=== PATIENT | female | born 1995 | race Two or more races ===

== ENCOUNTER 2018-03-10 14:02 | Emergency (ER) | payer MEDICAID ==
[~2018-03-10] VITALS: Ht 157.5 cm; Wt 52.2 kg
[~2018-03-10 14:02] MED LIST: BACTRIM DS TAB1 EAC1 ORAL; CEPHALEXIN500 MG PO; CIPROFLOXACIN500 M2 ORAL; IBUPROFEN600 MG ORAL; KEFLEX500 MG ORAL; MACROBID100 MG ORAL; NKM; PHENAZOPYRIDIN200 MG ORAL
[2018-03-10 14:28] VITALS: BP 107/70
--- NOTE | 2018-03-10 14:36 | Emergency Room Report ---
History of Present Illness General Chief Complaint: Skin Rash/Abscess Source: Patient Present Illness HPI This patient presents after attempting IVDA meth two days ago and she says she missed the right antecubital vein and presents with red/swollen/painful right forearm and half of arm. No other complaints. No fever. No other issues. This is her first attempted use of IV meth. No cp, sob, n/v, change in bowels, no travel hx. No PMH Allergies: Coded Allergies: MORPHINE (Verified Allergy, Severe, Anaphylaxis, 09/06/12) Patient History Last Menstrual Period: 02/14/18 Nursing Documentation-PMH Past Medical History: No History, Except For Review of Systems Constitutional: Denies: fever Eye: Denies: acuity changes Respiratory: Denies: cough, shortness of breath Cardiovascular: Denies: chest pain Gastrointestinal: Denies: nausea, vomiting Musculoskeletal: Reports: see HPI - right arm pain/red/swollen Skin: Denies: rash Neurological: Denies: headache Physical Exam Vital Signs Date Time Temp Pulse Resp B/P (MAP) Pulse Ox O2 Delivery O2 Flow Rate FiO2 03/10/18 14:17 98.1 87 18 107/70 99 Room Air 98.1 General Appearance: well appearing, no apparent distress Head: normocephalic, atraumatic ENT: hearing grossly normal, normal voice Neck: full range of motion, supple Respiratory: no respiratory distress, speaking full sentences Musculoskeletal: no calf tenderness, other - right arm: forearm and distal half arm cellulitis; NVI Neurologic: alert, normal gait Psychiatric: mood/affect normal Skin: no rash Medical Decision Making Diagnostic Impression: Primary Impression: Cellulitis of right upper arm ER Course healthy 22F with no PMH, no meds, with cellulitis related to attempted IVDA. received IV Ancef in ED, no labs needed, will d/c with keflex. strongly counseled re IVDA and meth Last Vital Signs Date Time Temp Pulse Resp B/P (MAP) Pulse Ox O2 Delivery O2 Flow Rate FiO2 03/10/18 14:28 98.1 84 18 107/70 99 Room Air 98.1 Status: improved Disposition: HOME, SELF-CARE Condition: Improved Scripts Cephalexin* (KEFLEX*) 500 Mg Capsule 500 MG ORAL EVERY 6 HOURS for 7 Days, #28 CAP Prov: Stew Doll M.D. 03/10/18 Patient Instructions: Cellulitis, [id number] Stew Doll M.D. Mar 10, 2018 14:36
[2018-03-10] MEDS ORDERED: ceFAZolin 2gm/50ml Premix 50 ML ONE (14:37)
[2018-03-10] MEDS ORDERED: CEPHALEXIN500 MG ORAL (14:39)
[2018-03-10] MEDS ORDERED: ceFAZolin 1gm/50ml Premix 50 ML IV ONE (14:45)
[2018-03-10 15:30] VITALS: BP 107/70
== END 2018-03-10 15:30 | disposition home or self-care (01) ==
LOC: EMR 14:48
DX: L03.113 Cellulitis of right upper limb (principal); Z88.5 Allergy status to narcotic agent
CPT/HCPCS: 99283; J0690

== ENCOUNTER 2018-03-21 14:02 | Emergency (ER) | payer MEDICAID ==
[~2018-03-21] VITALS: Ht 165.1 cm; Wt 59.0 kg
[~2018-03-21 14:02] MED LIST changes: +CEPHALEXIN500 MG ORAL
[2018-03-21] MEDS ORDERED: LORazepam Inj 2mg/ml 1ml IV ONE (14:30)
--- NOTE | 2018-03-21 14:37 | Emergency Room Report ---
History of Present Illness General Chief Complaint: Altered Mental Status Source: Patient Present Illness HPI Patient is a 22-year-old female presented after increased altered mental status. Patient reports having used crystal meth as well as have some computer high pressure cleaner prior to arrival approximately 30 minutes prior to ER visit. Patient presents having palpitations. She denies any fever. Patient reports increased generalized weakness. She denies any chest pain. Allergies: Coded Allergies: MORPHINE (Verified Allergy, Severe, Anaphylaxis, 09/06/12) Patient History Past Medical History: see triage record Last Menstrual Period: 02/24/18 Now: No Reviewed Nursing Documentation: PMH: Agreed; PSxH: Agreed Review of Systems All Other Systems: negative except mentioned in HPI Physical Exam Vital Signs Date Time Temp Pulse Resp B/P (MAP) Pulse Ox O2 Delivery O2 Flow Rate FiO2 03/21/18 14:04 99.4 111 18 129/72 100 Room Air 99.3 Sp02 EP Interpretation: reviewed, normal General Appearance: normal inspection, well appearing, no apparent distress, alert, GCS 15 Head: atraumatic ENT: normal ENT inspection, hearing grossly normal, normal voice Neck: normal inspection, full range of motion, supple, no bony tend Respiratory: normal inspection, lungs clear, normal breath sounds, no respiratory distress, no retraction, no wheezing Cardiovascular #1: no edema, tachycardia Gastrointestinal: normal inspection, normal bowel sounds, non tender, soft, no guarding, no hernia Genitourinary: no CVA tenderness Musculoskeletal: normal inspection, back normal, normal range of motion Neurologic: normal inspection, alert, oriented x3, responsive, jinriksha driver III-XII nml as tested, speech normal Psychiatric: normal inspection, judgement/insight normal, mood/affect normal Skin: normal inspection, normal color, no rash Medical Decision Making Diagnostic Impression: Primary Impression: Polysubstance abuse Additional Impressions: Hypokalemia UTI (urinary tract infection) ER Course Patient presented for generalized weakness. Differential diagnosis included was not limited to anemia, urinary tract infection, electrolyte abnormality, hypothyroidism, myocardial infarction, myasthenia gravis, dehydration, among others. Because of complexity of patient's case laboratory testing and imaging studies were ordered. The patient was given IV fluids as well as IV Ativan. Patient was noted to have initial tachycardia. EKG interpreted by me showed sinus tachycardia with rate of [address] or T wave changes. Patient noted have incomplete right bundle-branch block as well as prominent R-wave in aVR.The patient's urine drug screen showed evidence of methamphetamine as well as marijuana. The patient was observed in the emergency department.Patient was advised the drug cessation. She is noted to have improvement in her symptoms after medications. Patient is advised follow-up with outpatient substance abuse treatment. Patient is given prescription for Keflex for urinary tract infection. Labs Test 03/21/18 14:20 White Blood Count 9.8 K/UL (4.8-10.8) Red Blood Count 5.05 M/UL (4.20-5.40) Hemoglobin 14.5 G/DL (12.0-16.0) Hematocrit 43.5 % (37.0-47.0) Mean Corpuscular Volume 86 FL (80-99) Mean Corpuscular Hemoglobin 28.6 PG (27.0-31.0) Mean Corpuscular Hemoglobin Concent 33.2 G/DL (32.0-36.0) Red Cell Distribution Width 11.6 % (11.6-14.8) Platelet Count 322 K/UL (150-450) Mean Platelet Volume 6.2 FL (6.5-10.1) Neutrophils (%) (Auto) 54.4 % (45.0-75.0) Lymphocytes (%) (Auto) 36.1 % (20.0-45.0) Monocytes (%) (Auto) 8.3 % (1.0-10.0) Eosinophils (%) (Auto) 0.4 % (0.0-3.0) Basophils (%) (Auto) 0.9 % (0.0-2.0) Urine Color Yellow Urine Appearance Cloudy Urine pH 6 (4.5-8.0) Urine Specific [place] 1.025 (1.005-1.035) Urine Protein 1+ (NEGATIVE) Urine Glucose (UA) Negative (NEGATIVE) Urine Ketones 2+ (NEGATIVE) Urine Occult Blood 2+ (NEGATIVE) Urine Nitrite Negative (NEGATIVE) Urine Bilirubin Negative (NEGATIVE) Urine Urobilinogen 1 MG/DL (0.0-1.0) Urine Leukocyte Esterase 2+ (NEGATIVE) Urine RBC 2-4 /HPF (0 - 2) Urine WBC 10-15 /HPF (0 - 2) Urine Squamous Epithelial Cells Few /LPF (NONE/OCC) Urine Bacteria Many /HPF (NONE) Urine HCG, Qualitative Negative (NEGATIVE) Sodium Level 137 MMOL/L (136-145) Potassium Level 3.2 MMOL/L (3.5-5.1) Chloride Level 101 MMOL/L (98-107) Carbon Dioxide Level 24 MMOL/L (21-32) Anion Gap 12 mmol/L (5-15) Blood Urea Nitrogen 10 mg/dL (7-18) Creatinine 0.7 MG/DL (0.55-1.30) Estimat Glomerular Filtration Rate > 60 mL/min (>60) Glucose Level 97 MG/DL (74-106) Calcium Level 9.2 MG/DL (8.5-10.1) Total Bilirubin 0.8 MG/DL (0.2-1.0) Aspartate Amino Transf (AST/SGOT) 19 U/L (15-37) Alanine Aminotransferase (ALT/SGPT) 17 U/L (12-78) Alkaline Phosphatase 107 U/L (46-116) Total Protein 7.9 G/DL (6.4-8.2) Albumin 4.0 G/DL (3.4-5.0) Globulin 3.9 g/dL Albumin/Globulin Ratio 1.0 (1.0-2.7) Salicylates Level < 0.2 ug/mL (2.8-20) Urine Opiates Screen Negative (NEGATIVE) Acetaminophen Level < 2 MCG/ML (10-30) Urine Barbiturates Screen Negative (NEGATIVE) Phencyclidine (PCP) Screen Negative (NEGATIVE) Urine Amphetamines Screen Positive (NEGATIVE) Urine Benzodiazepines Screen Negative (NEGATIVE) Urine Cocaine Screen Negative (NEGATIVE) Urine Marijuana (THC) Screen Positive (NEGATIVE) Serum Alcohol < 3 mg/dL EKG Diagnostic Results Rate: tachycardiac Rhythm: NSR ST Segments: no acute changes Last Vital Signs Date Time Temp Pulse Resp B/P (MAP) Pulse Ox O2 Delivery O2 Flow Rate FiO2 03/21/18 14:04 99.4 111 18 129/72 100 Room Air 99.3 Status: improved Disposition: HOME, SELF-CARE Condition: Stable Scripts Cephalexin* (KEFLEX*) 500 Mg Capsule 500 MG ORAL EVERY 6 HOURS, #40 CAP Prov: Tk Barrios MD 03/21/18 Tk Barrios MD Mar 21, 2018 14:37
[2018-03-21 14:43] LABS: APPEARANCE,URINE CLOUDY; BASOPHILS % (AUTO) 0.9 % (0.0-2.0); BILIRUBIN, URINE NEGATIVE (NEGATIVE); EOSINOPHILS % (AUTO) 0.4 % (0.0-3.0); GLUCOSE, URINE (UA) NEGATIVE (NEGATIVE); HEMATOCRIT 43.5 % (37.0-47.0); HEMOGLOBIN 14.5 G/DL (12.0-16.0); KETONES,URINE 2+ (NEGATIVE); LEUKOCYTE ESTERASE ,URINE 2+ (NEGATIVE); LYMPHOCYTES % (AUTO) 36.1 % (20.0-45.0); MEAN CORPUSCULAR VOLUME 86 FL (80-99); MONOCYTES % (AUTO) 8.3 % (1.0-10.0); NEUTROPHILS % (AUTO) 54.4 % (45.0-75.0); NITRITE,URINE NEGATIVE (NEGATIVE); PH,URINE 6 (4.5-8.0); PLATELET COUNT 322 K/UL (150-450); PROTEIN,URINE 1+ (NEGATIVE); RED BLOOD COUNT 5.05 M/UL (4.20-5.40); RED CELL DISTRIBUTION WIDTH 11.6 % (11.6-14.8); UROBILINOGEN,URINE 1 MG/DL (0.0-1.0); WHITE BLOOD COUNT 9.8 K/UL (4.8-10.8)
[2018-03-21 14:49] LABS: COLOR,URINE YELLOW
[2018-03-21 14:58] LABS: ANION GAP 12 mmol/L (5-15); BLOOD UREA NITROGEN 10 mg/dL (7-18); CALCIUM 9.2 MG/DL (8.5-10.1); CARBON DIOXIDE 24 MMOL/L (21-32); CHLORIDE 101 MMOL/L (98-107); CREATININE 0.7 MG/DL (0.55-1.30); POTASSIUM 3.2 MMOL/L (3.5-5.1); SODIUM 137 MMOL/L (136-145)
[2018-03-21 15:03] LABS: ALANINE AMINOTRANSFERASE 17 U/L (12-78); ALKALINE PHOSPHATASE 107 U/L (46-116); ASPARTATE AMINO TRANSFERASE 19 U/L (15-37); BILIRUBIN,TOTAL 0.8 MG/DL (0.2-1.0)
[2018-03-21] MEDS ORDERED: cefTRIAXone 1 GM in NS 55 ML IVPB ONE (15:30)
[2018-03-21 16:00] VITALS: BP 115/95
[2018-03-21] MEDS ORDERED: CEPHALEXIN500 MG ORAL (16:45)
[2018-03-21 16:50] VITALS: BP 128/89
--- NOTE | 2018-04-06 14:22 | Cardiology Report ---
APPROVED REPORT EKG Measurement Heart [id number] Sinus tachycardia Rightward axis Incomplet RBBB Borderline ECG
== END 2018-03-21 17:00 | disposition home or self-care (01) ==
LOC: EMR 14:15
DX: F15.10 Other stimulant abuse, uncomplicated (principal); R00.2 Palpitations; E87.6 Hypokalemia; N39.0 Urinary tract infection, site not specified; Z88.5 Allergy status to narcotic agent
CPT/HCPCS: 36415; 80053; 80307; 80329; 81003; 81025; 85025; 87086; 87181; 93005; 96361; 96365; 96375; 99283; J0696; J8499

== ENCOUNTER 2018-04-30 18:55 | Emergency (ER) | payer MEDICAID ==
[~2018-04-30] VITALS: Ht 157.5 cm; Wt 47.6 kg
--- NOTE | 2018-04-30 19:11 | Emergency Room Report ---
History of Present Illness General Chief Complaint: Behavioral Complaint Source: Patient, EMS Present Illness HPI 22 year-old female patient presents ER brought in by ambulance complaining of anxiety attack. Reports did not today, states that following doing meth she began having anxiety attack and called the ambulance. Reports after ambulance came to get her she was feeling better so decided she does not want to be brought in. Reports she later called ambulance again when symptoms returned and was brought into the ER. Reports history of anxiety, states she has not taken her medication in a "long time". Denies fever, shortness of breath, abdominal pain, seizure. denies history of heart attack or stroke. Denies suicidal or homicidal ideation. Allergies: Coded Allergies: MORPHINE (Verified Allergy, Severe, Anaphylaxis, 09/06/12) Patient History Past Medical History: see triage record Last Menstrual Period: last month Now: No Reviewed Nursing Documentation: PMH: Agreed; PSxH: Agreed Nursing Documentation-PM Past Medical History: No History, Except For History Of Psychiatric Problem: Yes - anxiety, substance abuse Review of Systems All Other Systems: negative except mentioned in HPI Physical Exam Vital Signs Date Time Temp Pulse Resp B/P (MAP) Pulse Ox O2 Delivery O2 Flow Rate FiO2 04/30/18 18:49 101 22 115/71 100 Room Air Sp02 EP Interpretation: reviewed, normal General Appearance: well appearing, no apparent distress, alert, GCS 15, non- toxic Head: normocephalic, atraumatic Eyes: bilateral eye normal inspection, bilateral eye PERRL ENT: hearing grossly normal, normal pharynx, no angioedema, normal voice, uvula midline, moist mucus membranes Neck: full range of motion Respiratory: lungs clear, normal breath sounds, no rhonchi, no respiratory distress, no accessory muscle use, no wheezing, speaking full sentences Gastrointestinal: non tender, soft, no mass, non-distended, no guarding, no rebound Genitourinary: no CVA tenderness Musculoskeletal: back normal, digits/nails normal, gait/station normal, normal range of motion, non-tender Neurologic: alert, oriented x3, responsive, terminal clerk III-XII nml as tested, motor strength/tone normal, sensory intact, cerebellar normal, normal gait, speech normal Psychiatric: mood/affect normal Skin: no rash Medical Decision Making PA Attestation Dr. Hughes is my supervising Physician whom patient management has been discussed with. Diagnostic Impression: Primary Impression: Anxiety Additional Impression: Drug use ER Course Pt. presents to the ED c/o anxiety after drug use. Ddx considered but are not limited to anxiety, drug use, MO, CHF. Vital signs: are WNL, pt. is afebrile ER COURSE: review previous patient charts, patient previously seen for anxiety and polysubstance abuse. denies chest pain, shortness of breath, abdominal pain, vision changes. Denies hitting her head or loss consciousness. ordered 2 mg of Ativan for patient. EKG ordered shows no ST elevations or arrhythmia. EKG comparable to previous EKGs reviewed. CXR negative for acute disease. Denies suicidal or homicidal ideation, patient states she "wants to go home and shower and sleep". Do not believe patient is a danger to herself or others. patient states she is feeling better. Advised patient, don't do meth. patient able to answer questions without difficulty, no focal neural deficits, okay for discharge home. patient nontoxic appearing, in no acute distress. follow-up with primary care provider discuss medication treatment for anxiety. I will provide contact information for mental health urgent care. ER precautions given. DISCHARGE: At this time pt is stable for d/c to home. Patient is resting comfortably, in no acute distress, nontoxic appearing, talking without difficulty. Patient to take medications as instructed Will provide with patient care instructions and any necessary prescriptions. Care plan and follow-up instructions provided. Patient instructed to follow-up with primary care provider in 3 - 5 days. Patient questions asked and answered. Patient reports understanding and agreement to treatment plan. ER precautions given. Patient instructed to return to ER immediately for any new or worsening of symptoms including but not limited to increasing SOB, persistent fever, chest pain, intractable vomiting. - Please note that this Emergency Department Report was dictated using [employer] systems technician technology software, occasionally this can lead to erroneous entry secondary to interpretation by the dictation equipment. EKG Diagnostic Results Rate: normal Rhythm: NSR ST Segments: no acute changes ASA given to the pt in ED: No PA Scribe Text Ken López PA-C Rhythm Strip Diag. Results EP Interpretation: yes Rate: 96 Rhythm: NSR, no PVC's, no ectopy PA Scribe Text Ken López PA-C Chest X-Ray Diagnostic Results Chest X-Ray Diagnostic Results : Chest X-Ray Ordered: Yes # of Views/Limited/Complete: 1 View Indication: Chest Pain EP Interpretation: Yes PA Xray: Interpretation reviewed, by supervising MD, and agrees with findings. Interpretation: no consolidation, no effusion, no pneumothorax, no acute cardiopulmonary disease Impression: No acute disease MARS Scribsuzan Text Ken López PA-C Last Vital Signs Date Time Temp Pulse Resp B/P (MAP) Pulse Ox O2 Delivery O2 Flow Rate FiO2 04/30/18 18:49 101 22 115/71 100 Room Air Status: improved Disposition: HOME, SELF-CARE Condition: Stable Patient Instructions: Generalized Anxiety Disorder, Stimulant Use Disorder- Methamphetamines Additional Instructions: Followup with primary care provider in 3 -5 days. discuss treatment for anxiety. Don't use meth. follow-up with mental health urgent care. Follow up with treatment center for drug use. Contact information provided. Take medications as directed. Patient questions asked and answered. ER precautions given, patient instructed to return to ER immediately for any new or worsening of symptoms. Javed López Apr 30, 2018 19:11
[2018-04-30] MEDS ORDERED: LORazepam Inj 2mg/ml 1ml IM ONE (19:15)
[2018-04-30 19:56] VITALS: BP 114/73
[2018-04-30 20:24] VITALS: BP 114/73
--- NOTE | 2018-05-01 10:48 | Diagnostic Imaging Report ---
Indication: Reason For Exam: PAIN Technique: One view of the chest Comparison: 03/18/2008 Findings: Lungs and pleural spaces are clear. Heart size is normal . No significant change Impression: No acute process
--- NOTE | 2018-05-02 16:04 | Cardiology Report ---
APPROVED REPORT EKG Measurement Heart [id number] Normal sinus rhythm Normal ECG
== END 2018-04-30 20:24 | disposition home or self-care (01) ==
LOC: EDBD 18:55 → EMR 19:16
DX: F41.9 Anxiety disorder, unspecified (principal); F15.90 Other stimulant use, unspecified, uncomplicated
CPT/HCPCS: 71045; 93005; 96372; 99284

== ENCOUNTER 2018-05-04 07:39 | Emergency (ER) | payer MEDICAID ==
[~2018-05-04] VITALS: Ht 160 cm; Wt 54.4 kg
--- NOTE | 2018-05-04 08:28 | Emergency Room Report ---
History of Present Illness General Chief Complaint: Nausea, Vomiting, and Diarrhea Source: Patient Present Illness HPI This patient is brought in by EMS. EMS was called by the patient's boyfriend and friends. The patient is well-known to [facility]. She has a very severe polysubstance abuse addiction. She regularly and heavily uses marijuana, and addition to smoking and injecting methamphetamine. 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 She states she constantly uses some type of substance. She states that she does this because of stress in her life. She states that over the past several months she has just started injecting methamphetamine. She presents today for concern of her friends that she Is falling out. She would be walking and fall down. Her friends and her boyfriend were concerned she was having seizures. She states that she also used Xanax over the past 24 hours. She has also used methamphetamine and smokes marijuana all day. She herself has no specific complaints. She denies pain. She denies nausea or vomiting. She denies fever or chills. Allergies: Coded Allergies: MORPHINE (Verified Allergy, Severe, Anaphylaxis, 09/06/12) Patient History Past Medical History: see triage record, other - polysubstance abuse Social History: Reports: smoking, alcohol use, drug use Last Menstrual Period: 2 months ago Reviewed Nursing Documentation: PMH: Agreed; PSxH: Agreed Nursing Documentation-PMH Past Medical History: No History, Except For Review of Systems All Other Systems: negative except mentioned in HPI Physical Exam Vital Signs Date Time Temp Pulse Resp B/P (MAP) Pulse Ox O2 Delivery O2 Flow Rate FiO2 05/04/18 07:38 98.2 77 14 129/90 98 Room Air 98.2 Sp02 EP Interpretation: reviewed, normal General Appearance: no apparent distress, alert, GCS 15, non-toxic Head: normocephalic, atraumatic Eyes: bilateral eye normal inspection, bilateral eye PERRL ENT: hearing grossly normal, normal pharynx, no angioedema, normal voice Neck: full range of motion, supple/symm/no masses Respiratory: chest non-tender, lungs clear, normal breath sounds, no respiratory distress, no retraction, no accessory muscle use, speaking full sentences Cardiovascular #1: regular rate, rhythm, no edema Gastrointestinal: normal bowel sounds, non tender, soft, non-distended, no guarding, no rebound Rectal: deferred Genitourinary: normal inspection, no CVA tenderness Musculoskeletal: back normal, gait/station normal, normal range of motion, non- tender Neurologic: alert, oriented x3, responsive, motor strength/tone normal, sensory intact, speech normal Psychiatric: judgement/insight normal, memory normal, mood/affect normal, no suicidal/homicidal ideation Skin: normal color, no rash, warm/dry, well hydrated Medical Decision Making Diagnostic Impression: Primary Impression: Polysubstance abuse Additional Impression: Drug intoxication ER Course This patient presents with polysubstance abuse and intoxication. The patient's friends were concerned about her and wanted her evaluated. She appears mildly intoxicated. She has a positive UDS for benzodiazepines, amphetamines and THC. This is consistent with her report of her drug use. Likely her symptoms are related to the benzodiazepines as she is slightly sleepy, although, she is able to articulate her history. At this time, she is not interested in any rehabilitation. I did educate the patient on the dangers of polysubstance abuse and morbidity and mortality. She was offered to return here to the emergency department if she changes her mind about her consistent and persistent polysubstance abuse. She indicated understanding. I did do basic laboratory studies to include CBC, CMP, cardiac enzymes and a urinalysis. These were all unremarkable. EKG was also unremarkable and reassuring. At this time, my overall evaluation is benign. The patient is well-appearing and nontoxic. She is accompanied by her boyfriend. She is able to ambulate without difficulty. I did not identify an emergency medical condition. She was given close return precautions and follow-up instructions. Laboratory Tests Test 05/04/18 08:10 White Blood Count 3.4 K/UL (4.8-10.8) L Red Blood Count 5.43 M/UL (4.20-5.40) H Hemoglobin 15.3 G/DL (12.0-16.0) Hematocrit 46.6 % (37.0-47.0) Mean Corpuscular Volume 86 FL (80-99) Mean Corpuscular Hemoglobin 28.2 PG (27.0-31.0) Mean Corpuscular Hemoglobin Concent 32.9 G/DL (32.0-36.0) Red Cell Distribution Width 11.6 % (11.6-14.8) Platelet Count 259 K/UL (150-450) Mean Platelet Volume 6.2 FL (6.5-10.1) L Neutrophils (%) (Auto) % (45.0-75.0) Lymphocytes (%) (Auto) % (20.0-45.0) Monocytes (%) (Auto) % (1.0-10.0) Eosinophils (%) (Auto) % (0.0-3.0) Basophils (%) (Auto) % (0.0-2.0) Neutrophils % (Manual) Pending Lymphocytes % (Manual) Pending Platelet Estimate Pending Platelet Morphology Pending Urine Color Yellow Urine Appearance Slightly cloudy Urine pH 6 (4.5-8.0) Urine Specific [place] 1.025 (1.005-1.035) Urine Protein 2+ (NEGATIVE) H Urine Glucose (UA) Negative (NEGATIVE) Urine Ketones 2+ (NEGATIVE) H Urine Blood 1+ (NEGATIVE) H Urine Nitrite Negative (NEGATIVE) Urine Bilirubin Negative (NEGATIVE) Urine Urobilinogen 4 MG/DL (0.0-1.0) H Urine Leukocyte Esterase 1+ (NEGATIVE) H Urine RBC 0-2 /HPF (0 - 2) Urine WBC 0-2 /HPF (0 - 2) Urine Squamous Epithelial Cells Moderate /LPF (NONE/OCC) H Urine Bacteria Moderate /HPF (NONE) H Urine HCG, Qualitative Negative (NEGATIVE) Sodium Level 141 MMOL/L (136-145) Potassium Level 3.5 MMOL/L (3.5-5.1) Chloride Level 103 MMOL/L (98-107) Carbon Dioxide Level 27 MMOL/L (21-32) Anion Gap 11 mmol/L (5-15) Blood Urea Nitrogen 8 mg/dL (7-18) Creatinine 0.7 MG/DL (0.55-1.30) Estimate Glomerular Filtration Rate > 60 mL/min (>60) Glucose Level 92 MG/DL (74-106) Calcium Level 10.3 MG/DL (8.5-10.1) H Total Bilirubin 0.7 MG/DL (0.2-1.0) Aspartate Amino Transferase (AST) 16 U/L (15-37) Alanine Aminotransferase (ALT) 33 U/L (12-78) Alkaline Phosphatase 95 U/L (46-116) Troponin I 0.017 ng/mL (0.000-0.056) Total Protein 9.4 G/DL (6.4-8.2) H Albumin 4.6 G/DL (3.4-5.0) Globulin 4.8 g/dL Albumin/Globulin Ratio 1.0 (1.0-2.7) Lipase 101 U/L (73-393) Urine Opiates Screen Negative (NEGATIVE) Urine Barbiturates Screen Negative (NEGATIVE) Phencyclidine (PCP) Screen Negative (NEGATIVE) Urine Amphetamines Screen Positive (NEGATIVE) H Urine Benzodiazepines Screen Positive (NEGATIVE) H Urine Cocaine Screen Negative (NEGATIVE) Urine Marijuana (THC) Screen Positive (NEGATIVE) H EKG Diagnostic Results Rate: normal Rhythm: NSR ST Segments: no acute changes Rhythm Strip Diag. Results EP Interpretation: yes Rate: 80's Rhythm: NSR, no PVC's, no ectopy Last Vital Signs Date Time Temp Pulse Resp B/P (MAP) Pulse Ox O2 Delivery O2 Flow Rate FiO2 05/04/18 07:38 98.2 77 14 129/90 98 Room Air 98.2 Status: improved Disposition: HOME, SELF-CARE Condition: Improved Viashnavi Schmidt DO May 04, 2018 08:28
[2018-05-04 08:35] LABS: APPEARANCE,URINE SLIGHTLY CLOUDY; BILIRUBIN, URINE NEGATIVE (NEGATIVE); GLUCOSE, URINE (UA) NEGATIVE (NEGATIVE); KETONES,URINE 2+ (NEGATIVE); LEUKOCYTE ESTERASE ,URINE 1+ (NEGATIVE); NITRITE,URINE NEGATIVE (NEGATIVE); PH,URINE 6 (4.5-8.0); PROTEIN,URINE 2+ (NEGATIVE); UROBILINOGEN,URINE 4 MG/DL (0.0-1.0)
[2018-05-04 08:41] LABS: COLOR,URINE YELLOW
[2018-05-04 08:44] VITALS: BP 117/79
[2018-05-04 08:44] LABS: HEMATOCRIT 46.6 % (37.0-47.0); HEMOGLOBIN 15.3 G/DL (12.0-16.0); MEAN CORPUSCULAR VOLUME 86 FL (80-99); PLATELET COUNT 259 K/UL (150-450); RED BLOOD COUNT 5.43 M/UL (4.20-5.40); RED CELL DISTRIBUTION WIDTH 11.6 % (11.6-14.8); WHITE BLOOD COUNT 3.4 K/UL (4.8-10.8)
[2018-05-04 08:59] LABS: ANION GAP 11 mmol/L (5-15); BLOOD UREA NITROGEN 8 mg/dL (7-18); CALCIUM 10.3 MG/DL (8.5-10.1); CARBON DIOXIDE 27 MMOL/L (21-32); CHLORIDE 103 MMOL/L (98-107); CREATININE 0.7 MG/DL (0.55-1.30); POTASSIUM 3.5 MMOL/L (3.5-5.1); SODIUM 141 MMOL/L (136-145)
[2018-05-04 09:03] LABS: ALANINE AMINOTRANSFERASE 33 U/L (12-78); ALBUMIN 4.6 G/DL (3.4-5.0); ALKALINE PHOSPHATASE 95 U/L (46-116); ASPARTATE AMINO TRANSFERASE 16 U/L (15-37); BILIRUBIN,TOTAL 0.7 MG/DL (0.2-1.0)
[2018-05-04 09:44] VITALS: BP 118/64
--- NOTE | 2018-05-08 15:10 | Cardiology Report ---
APPROVED REPORT EKG Measurement Heart [id number] Normal sinus rhythm with sinus arrhythmia Normal ECG
== END 2018-05-04 09:55 | disposition home or self-care (01) ==
LOC: EDBD 07:39 → EMR 08:11
DX: F19.10 Other psychoactive substance abuse, uncomplicated (principal); T42.4X5A Adverse effect of benzodiazepines, initial encounter; F15.929 Other stimulant use, unspecified with intoxication, unspecified; F12.920 Cannabis use, unspecified with intoxication, uncomplicated; Y92.9 Unspecified place or not applicable; R29.6 Repeated falls; Z88.5 Allergy status to narcotic agent
CPT/HCPCS: 36415; 80053; 80307; 81003; 81025; 83690; 84484; 85007; 85025; 87086; 87181; 93005; 96360; 99284

== ENCOUNTER 2019-12-07 23:13 | Emergency (ER) | payer SELFPAY ==
[~2019-12-07] VITALS: Ht 157.5 cm; Wt 72.6 kg
[2019-12-07 23:25] VITALS: BP 147/92
--- NOTE | 2019-12-07 23:25 | NUR ---
ED Nurse Note: Pt brought in to ambulance by friends CO s/p sz and OD on ecstasy IV. Pt responsive and able to answer questions when prompted. SZ pads applied to bed. ERMD notified. Pt placed on a monitor and into a gown. Pt stated that she had a syringe full of drugs in her purse, drugs removed and disposed of. ERMD aware. AVD at bedside
--- NOTE | 2019-12-07 23:33 | Emergency Room Report ---
History of Present Illness General Chief Complaint: Overdose Source: Patient Present Illness HPI This a 24-year-old female with a history of polysubstance abuse. Her drug use is usually methamphetamine. She also does huffing and marijuana. She says she try ecstasy today. Since then she states she felt funny. Her friend brought her in because she was sedated. Patient denies any suicidal thoughts homicidal thought. He denies any alcohol use. No nausea no vomiting. No fever chills. Denies any other complaint. Allergies: Coded Allergies: MORPHINE (Verified Allergy, Severe, Anaphylaxis, 09/06/12) COVID-19 Screening Contact w/high risk pt: No Recent Travel to affected area: No Experienced COVID-19 symptoms?: No Patient History Past Medical History: see triage record, old chart reviewed Past Surgical History: other Pertinent Family History: none Social History: Reports: drug use Now: No Immunizations: other Reviewed Nursing Documentation: PMH: Agreed; PSxH: Agreed Nursing Documentation-PMH Hx Seizures: Yes Review of Systems Eye: Denies: eye pain, blurred vision ENT: Denies: ear pain, nose congestion, throat swelling Respiratory: Denies: cough, shortness of breath Cardiovascular: Denies: chest pain, palpitations Gastrointestinal: Denies: abdominal pain, diarrhea, nausea, vomiting Musculoskeletal: Denies: back pain, joint pain Skin: Denies: rash Neurological: Denies: headache, numbness Endocrine: Denies: increased thirst, increased urine Hematologic/Lymphatic: Denies: easy bruising All Other Systems: negative except mentioned in HPI Physical Exam Vital Signs Date Time Temp Pulse Resp B/P (MAP) Pulse Ox O2 Delivery O2 Flow Rate FiO2 12/07/19 23:17 98.4 121 23 147/92 (110) 98 Room Air Vitals with tachycardia Sp02 EP Interpretation: reviewed, normal General Appearance: well appearing, no apparent distress, alert Head: normocephalic, atraumatic Eyes: bilateral eye PERRL, bilateral eye EOMI ENT: hearing grossly normal, normal pharynx Neck: full range of motion, supple, no meningismus Respiratory: chest non-tender, lungs clear, normal breath sounds Cardiovascular #1: regular rate, rhythm, no murmur, tachycardia Gastrointestinal: normal bowel sounds, non tender, no mass, no organomegaly, no bruit, non-distended Musculoskeletal: back normal, normal range of motion, gait/station normal Psychiatric: mood/affect normal Medical Decision Making Diagnostic Impression: Primary Impression: Polysubstance abuse ER Course Patient presents with polysubstance abuse. Her heart rate is now in the 110. [place] better now. She says she does not want to stay or get blood work or IV fluid. She is competent to make that decision. No criteria for 5150. She is not suicidal or homicidal. Will discharge home. Last Vital Signs Date Time Temp Pulse Resp B/P (MAP) Pulse Ox O2 Delivery O2 Flow Rate FiO2 12/07/19 23:17 98.4 121 23 147/92 (110) 98 Room Air Status: improved Disposition: HOME, SELF-CARE Condition: Stable Referrals: NOT CHOSEN IPA/,REFERRING (PCP) Additional Instructions: Stain from drugs and alcohol. Follow-up with rehab within a week. Return if worse. Govind Ho MD Dec 07, 2019 23:33
--- NOTE | 2019-12-07 23:35 | NUR ---
ED Nurse Note: Pt refused all medications and treatment, ERMD aware. Pt aware of possible life threatening consequences d/t decision.
--- NOTE | 2019-12-07 23:45 | NUR ---
ER DISCHARGE NOTE: Patient is cleared to be discharged home per ERMD, pt is aox4, on room air, with stable vital signs. pt was able to verbalize understanding, pt id band removed. pt is able to ambulate with steady gait. pt took all belongings.
[2019-12-07 23:46] VITALS: BP 145/90
== END 2019-12-07 23:46 | disposition home or self-care (01) ==
LOC: EMR 23:29
DX: F16.10 Hallucinogen abuse, uncomplicated (principal); Z88.6 Allergy status to analgesic agent; G40.909 Epilepsy, unspecified, not intractable, without status epilepticus
CPT/HCPCS: 99282